=== PATIENT | female | born 1995 | race Caucasian/White ===

== ENCOUNTER → 2018-01-13 | Emergency (ER) | payer OTHER ==
[~2018-01-13] VITALS: Ht 154.9 cm; Wt 50.8 kg
== END | disposition home or self-care (01) ==
LOC: ER 19:41
DX: J06.9 Acute upper respiratory infection, unspecified (principal); N39.0 Urinary tract infection, site not specified

== ENCOUNTER 2018-08-30 07:28 | Inpatient (IN) | payer OTHER ==
[~2018-08-30] VITALS: Ht 154.9 cm; Wt 67.1 kg
[2018-08-30] MEDS ORDERED: PRENATAL TABLE1 EAC3 PO (08:41)
== END 2018-09-01 12:28 | DRG 807 ==
LOC: OB/GYN 07:28 → LDR 07:28 → OB/GYN 16:26
PROC: 10E0XZZ Delivery of Products of Conception, External Approach (ICD-10-PCS; principal; 2018-08-30)
PROC: 0W8NXZZ Division of Female Perineum, External Approach (ICD-10-PCS; 2018-08-30)
PROC: 4A0HXCZ Measurement of Products of Conception, Cardiac Rate, External Approach (ICD-10-PCS; 2018-08-30)
PROC: 4A033R1 Measurement of Arterial Saturation, Peripheral, Percutaneous Approach (ICD-10-PCS; 2018-08-30)
DX: O80 Encounter for full-term uncomplicated delivery (principal); Z37.0 Single live birth; Z3A.39 39 weeks gestation of pregnancy

== ENCOUNTER 2020-07-28 15:00 | Inpatient (IN) | payer OTHER ==
[~2020-07-28] VITALS: Ht 154.9 cm; Wt 69.4 kg
[~2020-07-28 15:00] MED LIST: PRENATAL TABLE1 EAC3 PO
[2020-08-13] MEDS ORDERED: FOLIC ACID0.8 M1 PO (08:00)
== END 2020-08-15 13:29 | disposition home or self-care (01) | DRG 798 ==
LOC: LDR 08-13 04:55 → OB/GYN 08-13 04:55 → LDR 08-13 05:51 → OB/GYN 08-13 14:58
PROVIDERS: ADMIT Obstetrics & Gynecology; ATTEND Obstetrics & Gynecology
PROC: 0UB74ZZ Excision of Bilateral Fallopian Tubes, Percutaneous Endoscopic Approach (ICD-10-PCS; 2020-08-13)
PROC: 10907ZC Drainage of Amniotic Fluid, Therapeutic from Products of Conception, Via Natural or Artificial Opening (ICD-10-PCS; 2020-08-13)
PROC: 0W8NXZZ Division of Female Perineum, External Approach (ICD-10-PCS; 2020-08-13)
PROC: 4A1HXFZ Monitoring of Products of Conception, Cardiac Rhythm, External Approach (ICD-10-PCS; 2020-08-13)
PROC: 10E0XZZ Delivery of Products of Conception, External Approach (ICD-10-PCS; principal; 2020-08-13 21:00)
DX: O99.824 Streptococcus B carrier state complicating childbirth (principal); Z37.0 Single live birth; Z3A.39 39 weeks gestation of pregnancy; Z30.2 Encounter for sterilization; Z20.828 Contact with and (suspected) exposure to other viral communicable diseases